=== PATIENT | female | born 1990 | race Caucasian/White ===

== ENCOUNTER → 2017-07-02 08:54 | Outpatient (CLI) | payer OTHER, SELFPAY ==
[2017-07-02 11:01] LABS: Glucose GTT-Gestation. Fasting 84 mg/dL (<105)
[2017-07-02 11:01] LABS: Glucose GTT-Gestational 1 Hr 160 mg/dL (<190)
[2017-07-02 12:07] LABS: Glucose GTT-Gestational 2 Hr 120 mg/dL (<165)
[2017-07-02 13:38] LABS: Glucose GTT-Gestational 3 Hr 47 L (<145)
== END ==
PROVIDERS: Family Provider Family Medicine; PCP Family Medicine; Visit Provider Obstetrics & Gynecology
DX: R73.02 Impaired glucose tolerance (oral) (principal)
CPT/HCPCS: 36415; 82951; 82952